=== PATIENT | female | born 1965 | race Caucasian/White ===

== ENCOUNTER 2017-02-07 05:12 | Emergency (ER) | payer OTHER ==
[2017-02-07 05:29] VITALS: BMI 37.8
[2017-02-07 06:17] LABS: URINE APPEARANCE SLCLOUDY; URINE BILIRUBIN NEGATIVE (NEGATIVE); URINE BLOOD NEGATIVE (NEGATIVE); URINE COLOR LTYELLOW; URINE GLUCOSE (UA) NEGATIVE (NEGATIVE); URINE KETONE NEGATIVE (NEGATIVE); URINE LEUK ESTERASE NEGATIVE (NEGATIVE); URINE NITRITE NEGATIVE (NEGATIVE); URINE PROTEIN NEGATIVE (NEGATIVE); URINE UROBILINOGEN NEGATIVE E.U./dl (0.2-1.0)
[2017-02-07] MEDS ORDERED: OXYCODONE/APAP 5/325MG COMBO TABLET PO ONE (06:50)
[2017-02-07] MEDS ORDERED: KETOROLAC TROMETHAMINE 60 MG/2 ML VIAL IM ONE (06:50)
[2017-02-07] MEDS ORDERED: OXYCODONE/APAP 5/325MG COMBO TABLET ONE (06:53)
[2017-02-07] MEDS ORDERED: KETOROLAC TROMETHAMINE 60 MG/2 ML VIAL ONE (06:53)
--- NOTE | 2017-02-07 06:57 | PDOC ---
History of Present Illness - General Chief Complaint: Back Pain Stated Complaint: PAIN,RT SIDE Time Seen by Provider: 02/07/17 05:47 History Source: Patient Exam Limitations: No Limitations - History of Present Illness Initial Comments: 02/07/17 06:52 51yo Female patient presents to ED c/o low back pain radiating down posterior left leg. Patient reports hx: Siatica. She state symptoms began and continue to worsen. PmHx: HTN, DM, Spinal Arthritis. Patient state she has been using her 800mg Motrin with little relief. LNMP: Partial Hysterectomy. Patient denies any other compaints at this time. Severity: moderate Modifying Factors: improves with: immobilization Associated Symptoms: denies: denies symptoms, chest pain, cough, diaphoresis, fever/chills, headaches, loss of appetite, malaise, nausea/vomiting, rash, seizure, shortness of breath, syncope, weakness, other Past History - Travel Traveled outside of the country in the last 30 days: No Close contact w/someone who was outside of country & ill: No - Past Medical History Allergies/Adverse Reactions: Allergies Allergy/AdvReac Type Severity Reaction Status Date / Time Sulfa (Sulfonamide Allergy Hives Verified 02/07/17 05:24 Antibiotics) Home Medications: Ambulatory Orders Aspirin [ASA -] 81 mg PO DAILY 03/04/14 Insulin Pump Cartridge [Accu-Chek D-David Plus] 1 each SQ ASDIR 03/04/14 Lisinopril [Prinivil] 20 mg PO DAILY 03/04/14 Ibuprofen 800 mg PO TID PRN 02/07/17 Omeprazole 40 mg PO DAILY 02/07/17 Diabetes: Yes GI Disorders: Yes HTN: Yes Liver Disease: Yes - Surgical History Abdominal Surgery: Yes - Psycho/Social/Smoking Cessation Hx Anxiety: No Suicidal Ideation: No Smoking History: Never smoked Have you smoked in the past 12 months: No Hx Alcohol Use: No Drug/Substance Use Hx: No Substance Use Type: None Review of Systems - Review of Systems Able to Perform ROS?: Yes Is the patient limited Danish proficient: No Musculoskeletal: Yes: Back Pain, Other (Leg Pain) All Other Systems: Reviewed and Negative *Physical Exam - Vital Signs Last Vital Signs Temp Pulse Resp BP Pulse Ox 98 F 65 18 171/77 100 02/07/17 05:25 02/07/17 05:25 02/07/17 05:25 02/07/17 05:25 02/07/17 05:25 - Physical Exam General Appearance: Yes: Nourished, Appropriately Dressed. No: Apparent Distress, Mild Distress, Moderate Distress, Severe Distress Respiratory/Chest: positive: Lungs Clear, Normal Breath Sounds. negative: Chest Tender, Respiratory Distress, Accessory Muscle Use, Labored Respiration, Rapid RR Cardiovascular: positive: Regular Rhythm, Regular Rate. negative: S1, S2, Edema , JVD Gastrointestinal/Abdominal: positive: Normal Bowel Sounds, Soft. negative: Pulsatile Mass, Increased Bowel Sounds, Decreased BS, Protuberent Musculoskeletal: positive: Normal Inspection. negative: CVA Tenderness, Decreased Range of Motion, Vertebral Tenderness Extremity: positive: Normal Capillary Refill, Normal Inspection, Normal Range of Motion. negative: Pedal Edema, Swelling, Calf Tenderness, Erythema, Inflammation Integumentary: positive: Normal Color, Dry, Warm. negative: Pale, Cold, Clammy , Diaphoresis Neurologic: positive: form setter/driver II-XII NML intact, Fully Oriented, Alert, Normal Mood/ Affect, Normal Response, Motor Strength 5/5 ED Treatment Course - ADDITIONAL ORDERS Additional order review: Laboratory Results 02/07/17 06:02 Urine Color Ltyellow Urine Appearance Slcloudy Urine pH 5.0 Ur Specific [place] 1.012 Urine Protein Negative Urine Glucose (UA) Negative Urine Ketones Negative Urine Blood Negative Urine Nitrite Negative Urine Bilirubin Negative Urine Urobilinogen Negative Ur Leukocyte Esterase Negative
[2017-02-07] MEDS ORDERED: predniSONE 20 MG TABLET (UD) PO ONE (07:05)
[2017-02-07] MEDS ORDERED: predniSONE 20 MG TABLET (UD) ONE (07:15)
--- NOTE | 2017-02-07 07:33 | PDOC ---
ED Treatment Course - ADDITIONAL ORDERS Additional order review: Laboratory Results 02/07/17 06:02 Urine Color Ltyellow Urine Appearance Slcloudy Urine pH 5.0 Ur Specific [place] 1.012 Urine Protein Negative Urine Glucose (UA) Negative Urine Ketones Negative Urine Blood Negative Urine Nitrite Negative Urine Bilirubin Negative Urine Urobilinogen Negative Ur Leukocyte Esterase Negative - Medications Given in the ED: ED Medications Discontinued Medications Generic Name Dose Route Start Last Admin Trade Name Andreq PRN Reason Stop Dose Admin Ketorolac Tromethamine 60 mg 02/07/17 06:50 02/07/17 06:59 Toradol Injection - IM 02/07/17 06:51 60 mg ONCE ONE Administration Oxycodone/Acetaminophen 2 combo 02/07/17 06:50 02/07/17 06:59 Percocet 5/325 - PO 02/07/17 06:51 2 combo ONCE ONE Administration Progress Note - Progress Note Progress Note: I have received report from HELEN Garcia regarding this patient. Pt's initial chief complaint: low back pain radiating to left leg Pt's work up completed prior to sign out: UA Pt treatment given from prior staff: PO percocet and prednisone, IM toradol Pt plan to be completed: Reassess Dispo: Discharge Medical Decision Making - Medical Decision Making A/P: 51 y/o afebrile female with 3 days of low back pain radiating down posterior left leg with history of sciatica. The patient was seen and treated by HELEN Garcia. Awaiting reassessment. The patient vomited once, most likely from the 2 Percocet. Ordered zofran. The patient states her back pain has resolved\. Will discharge to home with rx for ibuprofen and flexeril. Suggested she not drive while taking flexeril. Instructed her to f/u with her PCP within 1 week and return to the ER with any worsening or concerning symptoms The patient verbalizes understanding of all instructions, has no further questions and is awaiting discharge. *DC/Admit/Observation/Transfer Diagnosis at time of Disposition: Low back pain with sciatica Qualifiers: Chronicity: acute Back pain laterality: left Sciatica laterality: sciatica of left side Qualified Code(s): M54.42 - Lumbago with sciatica, left side - Discharge Dispostion Disposition: HOME Condition at time of disposition: Improved - Referrals Referrals: Bobbi Deal MD [Primary Care Provider] - Call tomorrow - Patient Instructions Printed Discharge Instructions: DI for Back Pain With Sciatica Additional Instructions: Discharge Instructions: -Take medications as prescribed -Do not drive while taking flexeril as it can cause drowsiness -Follow up with your doctor within 1 week -Return to the ER with any worsening or concerning symptoms
[2017-02-07] MEDS ORDERED: ONDANSETRON *ODT* 4 MG TABLET SL ONE (07:34)
[2017-02-07] MEDS ORDERED: ONDANSETRON *ODT* 4 MG TABLET ONE (07:35)
[2017-02-07 19:15] VITALS: BP 154/89; PULSE 95; TEMP 97.8
== END 2017-02-07 09:16 | disposition home or self-care (01) ==
LOC: JER 05:12
PROC: 3E0233Z Introduction of Anti-inflammatory into Muscle, Percutaneous Approach (ICD-10-PCS; principal; 2017-02-07)
DX: M54.42 Lumbago with sciatica, left side (principal); I10 Essential (primary) hypertension; E11.9 Type 2 diabetes mellitus without complications; Z79.4 Long term (current) use of insulin; M46.90 Unspecified inflammatory spondylopathy, site unspecified
CPT/HCPCS: 81003; 96372; 99281-25

== ENCOUNTER 2021-12-10 07:42 | Emergency (ER) | payer OTHER ==
[2021-12-10 07:57] VITALS: BMI 39.0
[2021-12-10] MEDS ORDERED: ASPIRIN 81 MG CHEWABLE TABLETS PO ONE (08:19)
[2021-12-10] MEDS ORDERED: HEPARIN NA (PORCINE) 5,000 UNITS/ML 1ML VIAL SQ ONE (08:24)
[2021-12-10] MEDS ORDERED: HEPARIN NA (PORCINE) 5,000 UNITS/ML 1ML VIAL IVPUSH PRN ×2 (08:24)
[2021-12-10] MEDS ORDERED: TICAGRELOR 90 MG TABLET PO ONE ×2 (08:28→08:43)
[2021-12-10] MEDS ORDERED: ATORVASTATIN CA 80 MG TABLET (FP) PO ONE (08:32)
[2021-12-10] MEDS ORDERED: HEPARIN NA (PORCINE) 5,000 UNITS/ML 1ML VIAL ONE (08:44)
[2021-12-10] MEDS ORDERED: ATORVASTATIN CA 80 MG TABLET (FP) ONE (08:44)
[2021-12-10] MEDS ORDERED: ASPIRIN 81 MG CHEWABLE TABLETS ONE (08:44)
[2021-12-10] MEDS ORDERED: HEPARIN - 25,000 UNIT in SODIUM CHLORIDE 495 ML IV SCH (08:45)
[2021-12-10 09:02] LABS: BASO % 0.3 % (0-2.0); EOS % 0.2 % (0-4.5); HEMATOCRIT 38.8 % (32.4-45.2); HEMOGLOBIN 13.1 GM/dL (10.7-15.3); LYMPH % 6.6 % (8-40); MCH 27.9 pg (25.7-33.7); MCHC 33.8 g/dl (32.0-36.0); MEAN CELL VOLUME 82.5 fl (80-96); MEAN PLT VOLUME 9.1 fl (7.5-11.1); MONO % 4.3 % (3.8-10.2); NEUT % 88.6 % (42.8-82.8); PLATELET COUNT 221 10^3/uL (134-434); RDW 14.7 % (11.6-15.6)
[2021-12-10 09:09] LABS: INR 1.06 (0.83-1.09); PROTHROMBIN TIME (PATIENT) 12.2 SEC (9.7-13.0)
[2021-12-10 09:12] LABS: ACTIVATED PTT 31.7 SECONDS (25.2-36.5)
[2021-12-10 09:22] LABS: CHLORIDE 102 mmol/L (98-107); SODIUM 135 mmol/L (136-145)
[2021-12-10 09:24] LABS: CALCIUM 9.7 mg/dL (8.5-10.1)
[2021-12-10 09:25] LABS: ALBUMIN 3.9 g/dl (3.4-5.0); ANION GAP 8 MMOL/L (8-16); BLOOD UREA NITROGEN 23.9 mg/dL (7-18); CO2 26 mmol/L (21-32); GLUCOSE,RANDOM 308 mg/dL (74-106)
[2021-12-10 09:28] LABS: CREATININE 1.4 mg/dL (0.55-1.3); SGOT/AST 47 U/L (15-37); SGPT/ALT 48 U/L (13-61)
[2021-12-10 09:30] LABS: BILIRUBIN,TOTAL 0.5 mg/dL (0.2-1); TOT PROT 7.9 g/dl (6.4-8.2)
[2021-12-10 09:31] LABS: ALK PHOS 81 U/L (45-117)
[2021-12-10 09:44] VITALS: BP 155/100; PULSE 82; TEMP 97.5
== END 2021-12-10 09:30 | disposition short-term general hospital (02) ==
LOC: JER 07:42
PROC: 3E033GC Introduction of Other Therapeutic Substance into Peripheral Vein, Percutaneous Approach (ICD-10-PCS; principal; 2021-12-10)
PROC: 3E033GC Introduction of Other Therapeutic Substance into Peripheral Vein, Percutaneous Approach (ICD-10-PCS; 2021-12-10)
DX: I21.3 ST elevation (STEMI) myocardial infarction of unspecified site (principal)
CPT/HCPCS: 36415; 71045-TC-FY; 80053; 84484; 85025; 85610; 85730; 93005; 93010; 99291; 99292; C9803; J1644; U0003; U0005

== ENCOUNTER 2024-11-07 12:41 | Emergency (ER) | payer OTHER ==
[2024-11-07 13:11] VITALS: BMI 37.0
[2024-11-07 14:41] LABS: HEMATOCRIT 41.1 % (32.4-45.2); HEMOGLOBIN 13.5 GM/dL (10.7-15.3); MEAN CELL VOLUME 81.8 fl (80-96); PLATELET COUNT 205 10^3/uL (134-434); RBC 5.02 M/mm3 (3.60-5.2); RDW 14.7 % (11.6-15.6); WHITE BLOOD COUNT 12.3 K/mm3 (4.0-10.0)
[2024-11-07 14:54] LABS: VENOUS BASE EXCESS -0.4 mmol/L (-2-2); VENOUS PCO2 52.9 mmHg (38-52); VENOUS PH 7.318 (7.310-7.410)
[2024-11-07 15:01] LABS: CHLORIDE 106 mmol/L (98-107); SODIUM 137 mmol/L (136-145)
[2024-11-07 15:03] LABS: ALBUMIN 4.3 g/dl (3.4-5.0); CALCIUM 9.9 mg/dL (8.5-10.1); CO2 26 mmol/L (21-32); MAGNESIUM 1.9 mg/dL (1.8-2.4)
[2024-11-07 15:04] LABS: GLUCOSE,RANDOM 229 mg/dL (74-106)
[2024-11-07 15:06] LABS: ANION GAP 5 mmol/L (4-13); CREATININE 1.6 mg/dL (0.55-1.3); POTASSIUM 6.2 mmol/L (3.5-5.1); SGOT/AST 24 U/L (15-37); SGPT/ALT 25 U/L (13-61)
[2024-11-07 15:08] LABS: BILIRUBIN,TOTAL 0.9 mg/dL (0.2-1); TOT PROT 8.9 g/dl (6.4-8.2)
[2024-11-07 15:09] LABS: ALK PHOS 110 U/L (45-117)
[2024-11-07] MEDS ORDERED: ACETAMINOPHEN INJECTION 100 ML ONE (15:14)
[2024-11-07] MEDS ORDERED: ONDANSETRON 4 MG/2 ML VIAL ONE (15:14)
[2024-11-07] MEDS ORDERED: FAMOTIDINE 20 MG/50 ML IVPB 20 MG/50 ML MG IVPB ONE (15:14)
[2024-11-07 15:24] LABS: ANISOCYTOSIS 1+; MACROCYTOSIS 0
[2024-11-07] MEDS: ACETAMINOPHEN 1000 MG/100 ML BAG IVPB ONE (15:32)
[2024-11-07] MEDS: ONDANSETRON 4 MG/2 ML VIAL IVPB ONE (15:32)
[2024-11-07] MEDS: FAMOTIDINE 20 MG/50 ML IVPB 20 MG/50 ML MG IVPB ONE (15:32)
[2024-11-07] MEDS: SODIUM CHLORIDE 0.9% 500 ML INFUS.BAG IV ONE ×2 (15:32→16:42)
[2024-11-07 15:58] LABS: POTASSIUM 5.2 mmol/L (3.5-5.1)
[2024-11-07 15:59] LABS: CALCIUM 9.5 mg/dL (8.5-10.1)
[2024-11-07 16:00] LABS: BLOOD UREA NITROGEN 32.5 mg/dL (7-18)
[2024-11-07 16:03] LABS: CREATININE 1.6 mg/dL (0.55-1.3)
[2024-11-07 17:21] VITALS: BP 126/56; PULSE 75; RESP 20; TEMP 98.2
== END 2024-11-07 17:21 | disposition home or self-care (01) ==
LOC: JER 12:41
PROC: 3E033GC Introduction of Other Therapeutic Substance into Peripheral Vein, Percutaneous Approach (ICD-10-PCS; principal; 2024-11-07)
PROC: 3E033NZ Introduction of Analgesics, Hypnotics, Sedatives into Peripheral Vein, Percutaneous Approach (ICD-10-PCS; 2024-11-07)
PROC: 3E033GC Introduction of Other Therapeutic Substance into Peripheral Vein, Percutaneous Approach (ICD-10-PCS; 2024-11-07)
DX: R11.2 Nausea with vomiting, unspecified (principal); R19.7 Diarrhea, unspecified; R10.9 Unspecified abdominal pain; Z20.822 Contact with and (suspected) exposure to COVID-19
CPT/HCPCS: 0241U-QW; 36415; 74176-TC; 80048; 80053; 82803; 82962; 83690; 83735; 84484; 85025; 93005; 93010; 96365; 96375; 99285-25; J0131